=== PATIENT | male | born 1990 ===

== ENCOUNTER 2019-05-07 20:36 | Emergency (ER) | payer MEDICAID ==
[~2019-05-07] VITALS: Ht 177.8 cm; Wt 69.1 kg
[2019-05-07 20:47] VITALS: BP 117/72
[2019-05-07] MEDS ORDERED: PENI500T2 PO (20:49)
[2019-05-07] MEDS ORDERED: penicillin V potassium 500mg tablet PO ONE (20:50)
[2019-05-07] MEDS ORDERED: acetaminophen 325mg tablet PO ONE (20:50)
== END 2019-05-07 20:55 | disposition home or self-care (01) ==
LOC: ER 20:39
DX: K02.9 Dental caries, unspecified (principal); Z79.899 Other long term (current) drug therapy
CPT/HCPCS: 99283